=== PATIENT | female | born 1955 | race Caucasian/White ===

== ENCOUNTER 2017-12-24 08:00 | Inpatient (IN) | payer OTHER ==
[~2017-12-24] VITALS: Ht 160 cm; Wt 90.7 kg
[2017-12-24] MEDS ORDERED: NEXIUM 24HR20 M1 PO (09:18)
[2017-12-24] MEDS ORDERED: IRBESARTAN300 MG PO (09:19)
[2017-12-24] MEDS ORDERED: GLUCOSAMINE &1 EACH PO (09:20)
[2017-12-24] MEDS ORDERED: CYMBALTA60 MG PO (09:20)
[2017-12-24] MEDS ORDERED: LUNESTA2 MG PO (09:21)
== END 2018-01-07 13:54 | disposition home or self-care (01) | DRG 330 ==
LOC: SURH 12-31 08:00 → SURG 12-31 08:55 → O/R 12-31 08:55 → SURH 12-31 15:30 → SURG 12-31 18:03
PROVIDERS: Colon & Rectal Surgery
PROC: 0DJD8ZZ Inspection of Lower Intestinal Tract, Via Natural or Artificial Opening Endoscopic (ICD-10-PCS; 2017-12-31)
PROC: 0DTN4ZZ Resection of Sigmoid Colon, Percutaneous Endoscopic Approach (ICD-10-PCS; principal; 2017-12-31 15:30)
PROC: 3E0F7GC Introduction of Other Therapeutic Substance into Respiratory Tract, Via Natural or Artificial Opening (ICD-10-PCS; 2018-01-04)
PROC: 4A033R1 Measurement of Arterial Saturation, Peripheral, Percutaneous Approach (ICD-10-PCS; 2018-01-04)
PROC: 02HV33Z Insertion of Infusion Device into Superior Vena Cava, Percutaneous Approach (ICD-10-PCS; 2018-01-04)
DX: K57.32 Diverticulitis of large intestine without perforation or abscess without bleeding (principal); J95.89 Other postprocedural complications and disorders of respiratory system, not elsewhere classified; J98.11 Atelectasis; Z88.0 Allergy status to penicillin; D64.89 Other specified anemias; I11.9 Hypertensive heart disease without heart failure

== ENCOUNTER 2017-12-26 11:07 | Outpatient (CLI) | payer OTHER ==
[~2017-12-26 11:07] MED LIST: CYMBALTA60 MG PO; GLUCOSAMINE &1 EACH PO; IRBESARTAN300 MG PO; LUNESTA2 MG PO; NEXIUM 24HR20 M1 PO
== END 2017-12-26 12:00 | disposition home or self-care (01) ==
LOC: NUCLEAR 11:07
DX: I11.9 Hypertensive heart disease without heart failure (principal)

== ENCOUNTER 2019-01-30 06:30 | Day surgery (SDC) | payer OTHER | END 2019-01-30 12:15 | disposition home or self-care (01) | LOC: AMB-ENDOS 06:30 | DX: K57.30 Diverticulosis of large intestine without perforation or abscess without bleeding (principal); K64.1 Second degree hemorrhoids ==

== ENCOUNTER 2023-11-07 19:35 | Emergency (ER) | payer OTHER ==
[~2023-11-07] VITALS: Ht 162.6 cm; Wt 101.2 kg
== END 2023-11-08 02:10 | disposition home or self-care (01) ==
LOC: ER 19:37
DX: S09.8XXA Other specified injuries of head, initial encounter (principal); W19.XXXA Unspecified fall, initial encounter; Y93.89 Activity, other specified; Y92.832 Beach as the place of occurrence of the external cause; Y99.8 Other external cause status; Z88.0 Allergy status to penicillin